=== PATIENT | male | born 1965 ===

== ENCOUNTER 2017-10-12 12:15 | Emergency (ER) | payer MEDICAID ==
[2017-10-12 12:51] VITALS: BP 113/79; PULSE 76; RESP 20; TEMP 97.2; O2SAT 98
== END 2017-10-12 12:53 | disposition left against medical advice (07) ==
LOC: C.ER 12:15
DX: Z02.89 Encounter for other administrative examinations (principal); F32.9 Major depressive disorder, single episode, unspecified

== ENCOUNTER 2017-10-12 15:12 | Emergency (ER) | payer MEDICAID, OTHER ==
[2017-10-12 16:58] VITALS: BP 104/78; PULSE 78; RESP 16; TEMP 97.3; O2SAT 96
--- NOTE | 2017-10-12 18:42 | C.PDOC ---
History Of Present Illness 52 y/o male presents to the ED for psychiatric evaluation. Patient reports he is depressed and mildly anxious. He denies auditory/visual hallucinations. SI/HI , and has no physical complaints at this time. Chief Complaint (Nursing): Psychiatric Evaluation History Per: Patient History/Exam Limitations: no limitations Onset/Duration Of Symptoms: Hrs Current Symptoms Are (Timing): Still Present Suicide/Self Injury Attempted (Context): None Associated Symptoms: Anxiety, Depression. denies: Suicidal Thoughts, Suicidal Plan Involuntary Hold By: None Recent travel outside of the [place]: No Additional History Per: Patient Past Medical History Reviewed: Historical Data, Nursing Documentation, Vital Signs Vital Signs: Last Vital Signs Temp 97.3 F L 10/12/17 16:57 Pulse 78 10/12/17 16:57 Resp 16 10/12/17 16:57 BP 104/78 10/12/17 16:57 Pulse Ox 96 10/12/17 18:42 - Medical History PMH: Seizures Surgical History: No Surg Hx Family History: States: Unknown Family Hx - Social History Hx Alcohol Use: No Hx Substance Use: No - Immunization History Hx Tetanus Toxoid Vaccination: No Hx Influenza Vaccination: No Hx Pneumococcal Vaccination: No Review Of Systems Psych: Positive for: Anxiety, Depression. Negative for: Suicidal ideation Physical Exam - Physical Exam Appears: Non-toxic, No Acute Distress Skin: Normal Color, Warm, Dry Head: Atraumatic, Normacephalic Eye(s): bilateral: Normal Inspection Oral Mucosa: Moist Neck: Supple Chest: Symmetrical, No Deformity, No Tenderness Cardiovascular: Rhythm Regular, No Murmur Respiratory: Normal Breath Sounds, No Rales, No Rhonchi, No Wheezing Extremity: Normal ROM, Capillary Refill (less than 2 seconds ) Neurological/Psych: Oriented x3, Normal Speech, Normal Cognition Gait: Steady ED Course And Treatment O2 Sat by Pulse Oximetry: 96 (on RA ) Pulse Ox Interpretation: Normal Medical Decision Making Medical Decision Making: Progress: Patient was reported to have an approximately 10-second long seizure episode with no post-ictal period. Patient is now awake and is requesting a Rx for Ativan, Percocet and Neurontin. He states he is compliant with his seizure medications. He is stable for discharge with Rx for Neurontin. Disposition - Disposition Referrals: [facility], [facility] [Outside] [facility] [Outside] Disposition: HOME/ ROUTINE Disposition Time: 16:20 Condition: GOOD Additional Instructions: Thank you for letting us take care of you today. The emergency medical care you received today was directed at your acute symptoms. If you were prescribed any medication, please fill it and take as directed. It may take several days for your symptoms to resolve. Return to the Emergency Department if your symptoms worsen, do not improve, or if you have any other problems. Please contact your doctor or call one of the physicians/clinics you have been referred to that are listed on the Patient Visit Information form that is included in your discharge packet. Bring any paperwork you were given at discharge with you along with any medications you are taking to your follow up visit. Our treatment cannot replace ongoing medical care by a primary care provider (PCP) outside of the emergency department. Thank you for allowing the [facility] team to be part of your care today. Please follow up with your doctor in 2-3 days for re-evaluation and further management. Prescriptions: Gabapentin [Neurontin] 100 mg PO TID #21 capsule Instructions: Anxiety (ED) Forms: [employer] (Swedish) - Clinical Impression Clinical Impression: Anxiety - Scribe Statement The provider has reviewed the documentation as recorded by the Scribe (Kyra Cummings) Provider Attestation: All medical record entries made by the Scribe were at my direction and personally dictated by me. I have reviewed the chart and agree that the record accurately reflects my personal performance of the history, physical exam, medical decision making, and the department course for this patient. I have also personally directed, reviewed, and agree with the discharge instructions and disposition.
== END 2017-10-12 19:05 | disposition home or self-care (01) ==
LOC: C.ER 15:12
DX: F41.9 Anxiety disorder, unspecified (principal)